=== PATIENT | male | born 1945 | race Caucasian/White ===

== ENCOUNTER → 2016-08-12 | Outpatient (CLI) | payer MEDICARE, OTHER ==
[2016-08-12 09:10] LABS: BASOPHILS % (AUTO) 2 % (0-2); EOSINOPHILS # (AUTO) 0.8 10^3uL; EOSINOPHILS % (AUTO) 11 % (0-4); LYMPHOCYTES # (AUTO) 2.6 X10^3; MEAN CORPUSCULAR HEMOGLOBIN 27.8 PG (26.0-34.0); MEAN CORPUSCULAR VOLUME 84 FL (80-100); MEAN PLATELET VOLUME 10.9 FL (6.0-9.5); MONOCYTES # (AUTO) 0.7 X10^3; MONOCYTES % (AUTO) 10 % (3-11); NEUTROPHILS % (AUTO) 41 % (51-67); PLATELET COUNT 196 10^3uL (150-450); WHITE BLOOD COUNT 7.25 10^3uL (4.0-11.0)
[2016-08-12 09:49] LABS: ALBUMIN 3.9 g/dL (3.4-5.0); ANION GAP 15.9 MEQ/L (3-15); CALCULATED IONIZED CALCIUM 4.4 mg/dL (3.8-4.6); ERYTHROCYTE SEDIMENTATION RT* 10 mm/hr (0-19); TOTAL PROTEIN 6.7 g/dL (6.4-8.5)
== END ==
LOC: LAB 08:21
PROVIDERS: ATTEND Internal Medicine
DX: Z00.00 Encounter for general adult medical examination without abnormal findings (principal); E11.9 Type 2 diabetes mellitus without complications; I48.91 Unspecified atrial fibrillation; E78.4 Other hyperlipidemia; G62.9 Polyneuropathy, unspecified; M1A.39X0 Chronic gout due to renal impairment, multiple sites, without tophus (tophi); M54.5 Low back pain; Z12.5 Encounter for screening for malignant neoplasm of prostate; Z11.59 Encounter for screening for other viral diseases
CPT/HCPCS: 36415; 80053; 80061; 80162; 82043; 83036; 84443; 84550; 85025; 85652; 86803; G0103; 84153

== ENCOUNTER → 2016-11-13 | Outpatient (CLI) | payer MEDICARE, OTHER ==
[~2016-11-13] MED LIST: ALLP100T; CEPH500T PO; CYAN1CRY; DIGO0.12 PO; GLYB5TAB3; HYDR-3702 PO; INSASP1U SQ; INSU100I30 SQ; LISI-596; MINO100C40; MTP25TSR; OMEP20CA6; SIMV80TA3; [UNRECOGNIZED DRUG - CODE]
[2016-11-13 08:49] LABS: BASOPHILS % (AUTO) 1 % (0-2); EOSINOPHILS # (AUTO) 0.4 10^3uL; EOSINOPHILS % (AUTO) 6 % (0-4); LYMPHOCYTES # (AUTO) 2.6 X10^3; MEAN CORPUSCULAR HEMOGLOBIN 27.5 PG (26.0-34.0); MEAN CORPUSCULAR HGB CONC 32.8 g/dL (31.0-37.0); MEAN CORPUSCULAR VOLUME 84 FL (80-100); MEAN PLATELET VOLUME 10.5 FL (6.0-9.5); MONOCYTES # (AUTO) 0.9 X10^3; MONOCYTES % (AUTO) 12 % (3-11); NEUTROPHILS # (AUTO) 3.1 X10^3; NEUTROPHILS % (AUTO) 44 % (51-67); PLATELET COUNT 205 10^3uL (150-450); WHITE BLOOD COUNT 7.07 10^3uL (4.0-11.0)
[2016-11-13 09:07] LABS: ANION GAP 15.3 MEQ/L (3-15)
--- NOTE | 2016-11-13 09:27 | Diagnostic Imaging Report ---
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 Heart and lung issues. Preoperative evaluation for esophageal procedure. EXAMINATION: Two-view chest 11/13/2016. The heart is stable. Pulmonary vasculature is unchanged from previous. There are increased densities bilaterally throughout the mid lung stable from prior examination as well. These findings are likely due to calcified pleural plaques. Underlying small nodules difficult to completely exclude. There are no effusions or infiltrates. There is no pneumothorax. IMPRESSION: 1. Stable chronic appearing changes including findings of likely previous asbestos exposure. This could obscure small underlying nodules. If there is continued clinical question, CT could provide better characterization. Dictated by: Dictated on workstation # [id number]
== END ==
LOC: LAB 08:37
PROVIDERS: ATTEND Internal Medicine Gastroenterology
DX: Z01.818 Encounter for other preprocedural examination (principal); K22.70 Barrett's esophagus without dysplasia; E11.9 Type 2 diabetes mellitus without complications
CPT/HCPCS: 36415; 71020; 80048; 83036; 85025; 93005